=== PATIENT | male | born 1955 | race African-American/Black ===

== ENCOUNTER 2024-04-05 12:35 | Outpatient (CLI) | payer OTHER, SELFPAY ==
--- NOTE | ~2024-04-05 | MR_ITS ---
MRI of the right ankle Clinical history: Achilles tendon injury Technique: Coronal proton-density and proton-density fat-sat images, axial proton-density and proton- density fat-sat images, and sagittal proton-density and proton-density fat-sat images were acquired. Findings: Syndesmotic ligaments are intact. Anterior and posterior talofibular ligaments, and calcane ofibular ligament are intact. Deltoid ligament is intact. Medial flexor tendons, peroneal tendons, and anterior extensor tendons are intact. There is a focal c omplete tear of the Achilles tendon approximately 7 cm proximal to the distal Achilles tendon inserti on. The retracted tendon images are markedly hyperintense and frayed, suspected underlying severe ten dinosis. There is focal marrow edema at the anterior aspect of the distal tibial plafond, screening for bone c ontusion or reactive marrow edema. Joint spaces are intact. No joint effusion evident. Plantar fascia intact. There is diffuse soft tissue edema about the ankle and distal calf. No fluid collection or m ass lesion seen. 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 Diffuse subcutaneous soft tissue edema. Possible bone contusion versus other reactive marrow edema at the anterior aspect of the distal tibia l plafond. Reviewed, dictated and finalized at location M. Impression: Complete tear of the Achilles with probable underlying severe Achilles tendinos is, as detailed above. Diffuse subcutaneous soft tissue edema. Possible bone contusion versus other reactive marrow edema at the anterior aspe ct of the distal tibial plafond.
== END 2024-04-05 12:36 | disposition home or self-care (01) ==
PROVIDERS: Visit Provider Internal Medicine
DX: S86.011A Strain of right Achilles tendon, initial encounter (principal); M79.89 Other specified soft tissue disorders
CPT/HCPCS: 73721

== ENCOUNTER 2024-04-14 08:37 | Outpatient (CLI) | payer OTHER, SELFPAY ==
--- NOTE | ~2024-04-14 | MR_ITS ---
EXAMINATION: MR abdomen wo/w con, MR pelvis wo/w con DATE: 04/14/2024 10:04 INDICATION: Mass at the inferior pole of the right kidney TECHNIQUE: 1. Magnetic resonance imaging (MRI) of the abdomen was performed without and with 17 mL Multihance in travenous contrast. Sequences included coronal T2-weighted SS-FSE, coronal and axial FS 2D-FIESTA, a xial STIR FSE, axial T2-weighted SS-FSE, axial T2-weighted FS SS-FSE, axial diffusion-weighted SE, ax ial dual-echo T1-weighted FSPGR, and axial and coronal T1-weighted LAVA. Postcontrast axial T1-weight ed LAVA images were obtained in a time course. Postcontrast coronal T1-weighted LAVA images were obta ined. 2. Full-field sequences of the pelvis included coronal T2-weighted SS FSE, coronal T2-weighted SS FS FSE, coronal 2D FIESTA, coronal 2D FIESTA FS, coronal LAVA-flex, sagittal LAVA, axial T2-weighted SS FSE, axial dual-echo T1-weighted FSPGR, axial 2D FIESTA, axial 2D FIESTA FS, axial T1 weighted LAVA a nd postcontrast axial and coronal T1-weighted LAVA. COMPARISON: None. FINDINGS: Abdomen: Heart size is normal. No pericardial or pleural effusion. Multiple T2 hyperintense nonenhancing hepat ic cysts. Gallbladder, spleen, pancreas and bilateral adrenal glands are normal. There are bilateral T2 hyperintense nonenhancing renal cysts the largest is in the right kidney measuring 4.2 cm with a c ouple thin internal septations consistent with a Bosniak 2 lesion. There are scattered diverticula al maddie the colon without adjacent comparison to suggest diverticulitis. No bowel obstruction. No patholo gically enlarged abdominal lymphadenopathy. Normal bone marrow signal throughout. Pelvis: Prostate is not visualized and likely surgically absent. There is prominent distention of the bladder which measures 14.6 x 13.9 x 13.3 cm. There is mild trabeculation along the mucosal surface along wi th a small diverticulum at the dome which suggests sequela prior outlet obstruction with differential including neurogenic bladder. No pathologically enlarged pelvic lymphadenopathy. No free fluid in th e pelvis. Normal bone marrow signal throughout. IMPRESSION: 1. A few bilateral renal cysts are dominantly on the right where the largest is a 4.[address] at the lower pole the right kidney. No solid enhancing renal neoplasm. 2. Distended bladder with some mucosal trabeculation and a small diverticulum likely sequela of chron ic outlet obstruction from a since removed prostate. Correlate with clinical history. Reviewed, dictated and finalized at location A. IMPRESSION: 1. A few bilateral renal cysts are dominantly on the right where the largest is a 4.2 cm Bosniak 2 cyst at the lower pole the right kidney. No solid enhancing renal neoplasm. 2. Distended bladder with some mucosal trabeculation and a small diverticulum l ikely sequela of chronic outlet obstruction from a since removed prostate. Darin elate with clinical history.
== END 2024-04-14 08:38 | disposition home or self-care (01) ==
PROVIDERS: Visit Provider Internal Medicine
DX: N28.89 Other specified disorders of kidney and ureter (principal); N28.1 Cyst of kidney, acquired; N32.89 Other specified disorders of bladder
CPT/HCPCS: 72197; 74183; A9577